=== PATIENT | female | born 1990 | race Caucasian/White ===

== ENCOUNTER 2020-11-20 10:57 | Inpatient (IN) | payer OTHER ==
[2020-11-20] MEDS ORDERED: ONDANSETRON 4 MG/2 ML VIAL ONE (11:20)
[2020-11-20] MEDS ORDERED: fentaNYL (PF) 50 MCG/ML 2 ML AMP ONE (11:20)
[2020-11-20] MEDS ORDERED: SUCCINYLCHOLINE CHLORIDE 100 MG/5 ML SYR IV ONE (11:20)
[2020-11-20] MEDS ORDERED: PROPOFOL 10 MG/ML 20 ML VIAL IV ONE (11:20)
[2020-11-20] MEDS ORDERED: OXYTOCIN 10 UNIT/ML 1 ML VIAL ONE (11:20)
[2020-11-20] MEDS ORDERED: CITRIC ACID-SODIUM CITRATE 15 ML CUP PO ONE (11:41)
[2020-11-20] MEDS ORDERED: NALOXONE 0.4 MG/ML 1 ML VIAL IV PRN (12:14)
[2020-11-20] MEDS ORDERED: diphenhydrAMINE 50 MG CAP PO PRN (12:14)
[2020-11-20] MEDS ORDERED: METOCLOPRAMIDE 5 MG/ML 2 ML VIAL IVP PRN (12:14)
[2020-11-20] MEDS ORDERED: ZOLPIDEM 5 MG TAB PO PRN (12:14)
[2020-11-20] MEDS ORDERED: SIMETHICONE 80 MG CHEWABLE PO PRN (12:14)
[2020-11-20] MEDS ORDERED: diphenhydrAMINE 50 MG/ML 1 ML VIAL IVP PRN ×2 (12:14)
[2020-11-20] MEDS ORDERED: ONDANSETRON 4 MG/2 ML VIAL IVP PRN (12:14)
[2020-11-20] MEDS ORDERED: diphenhydrAMINE 25 MG CAP PO PRN (12:14)
[2020-11-20] MEDS ORDERED: OXYTOCIN 30 UNITS/500 ML NS 30 UNIT in SALINE 1 500ML.BAG IV SCH (12:15)
[2020-11-20] MEDS ORDERED: LACTATED RINGERS 1,000 ML IV SCH (12:15)
[2020-11-20] MEDS ORDERED: ACETAMINOPHEN IV (For NPO) 1,000 MG in EMPTY BAG 1 BAG IVPB PRN (12:24)
[2020-11-20] MEDS ORDERED: HYDROmorphone PCA 10 MG/50 ML BAG IV PRN (12:25)
[2020-11-20 12:29] LABS: Basophils % (A) 0 %; Eosinophils # (A) 0.2 k/uL (0-0.7); Eosinophils % (A) 2 %; HGB 13.5 gm/dL (11.4-16.0); Lymphocytes # (A) 1.7 k/uL (1.0-4.8); Lymphocytes % (A) 18 %; MCH 31.1 pg (25.0-35.0); MCHC 34.5 g/dL (31.0-37.0); MCV 90.2 fL (80.0-100.0); Mean Platelet Volume 7.4; Monocytes # (A) 0.3 k/uL (0-1.0); Monocytes % (A) 3 %; Neutrophils # (A) 7.2 k/uL (1.3-7.7); Neutrophils % (A) 75 %; Platelet Count 207 k/uL (150-450); RBC 4.32 m/uL (3.80-5.40); RDW 14.6 % (11.5-15.5); WBC 9.6 k/uL (3.8-10.6)
--- NOTE | 2020-11-20 12:42 | P.OP ---
Date of Procedure: 11/20/20 Preoperative Diagnosis: Active labor, breech presentation, limited care Postoperative Diagnosis: Same plus confirmed demise Procedure(s) Performed: Primary low transverse section Anesthesia: MIKE Surgeon: Marly Gupta Adjustment Supervisor #1: Kole Lion Estimated Blood Loss (ml): 368 IV fluids (ml): 1,000 Urine output (ml): 1,000 Pathology: other (Placenta) Condition: stable Disposition: observation Indications for Procedure: 30 -year-old 4 para 3002 at presume term gestation presents in active labor. Patient was receiving limited care with Dr. Lo. Patient w as noted to be breech presentation and counseled for primary . Heart tones were unable to be obtained prior to section. Patient and significant other were aware of this finding. Operative Findings: Normal uterus tubes and ovaries were appreciated, interuterine demise was confirmed, female Description of Procedure: Patient was taken back to the operating suite where general anesthesia was obtained without difficulty by the anesthesia department. She had been prepped and draped prior to initiation of general anesthesia. A Pfannenstiel skin incision was made with the scalpel and carried through the underlying layer of fascia. Fascia was incised in the midline and the incision was extended laterally. The superior aspect of the fascial incision was then grasped with Sarai clamps, elevated and underlying rectus muscles dissected off sharply. Attention was then turned to the inferior aspect of the fascial incision and grasped sarai clamps, the fascia was then elevated and underlying rectus muscle was dissected off sharply. The rectus muscles were in the midline the peritoneum was identified and entered. The bladder blade was then inserted into the pelvis. A hysterotomy incision was then made, the infant was then delivered in the breech presentation. Foul-smelling meconium-stained fluid was appreciated. The umbo cord was doubly clamped and cut was able to be obtained in the umbilical cord appeared watkins in nature. The infant was handed off to awaiting RN. The placenta was then delivered manually intact with a three- vessel cord, the uterus was delivered from the abdomen and cleared of all clots and debris. The uterine incision was then closed 0 Vicryl in a running locked fashion from one lateral edge the other. A second imbricated suture was then performed. The pelvis then copiously irrigated and hysterotomy incision was inspected and found to be hemostatic. The uterus was then returned to the abdomen and the gutters were cleared of all clots and debris. A small amount of bleeding was noted in the right lateral edge of the uterine incision the Bovie was used to obtain hemostasis and FloSeal was placed over the area. The peritoneum was then loosely reapproximated and the fascia was closed with 0 Vicryl in a running fashion from one lateral edge the other. The subcutaneous tissue was then irrigated and found to be hemostatic, it was closed with 3-0 Vicryl in a running fashion. The skin was then closed with 4-0 Vicryl in a subcuticular fashion. Steri-Strips and sterile dressings were applied. All counts were noted be correct 2 at the end of the procedure. Patient tolerated procedure well.
[2020-11-20 12:58] LABS: INR 0.8 (<1.2); Partial Thromboplastin Time 23.9 sec (22.0-30.0); Prothrombin Time 9.3 sec (9.0-12.0)
[2020-11-20] MEDS ORDERED: IBUPROFEN IV 800 MG in SODIUM CHLORIDE 0.9% 250 ML IV PRN (13:00)
[2020-11-20 13:18] LABS: Amorphous Sediment,Urine Rare /hpf; Appearance,Urine Cloudy (Clear); Bilirubin,Urine Negative (Negative); Blood,Urine Negative (Negative); Color,Urine Light Yellow; Glucose,Urine (UA) Negative (Negative); Ketones,Urine 1+ (Negative); Leukocyte Esterase,Urine Negative (Negative); Nitrite,Urine Negative (Negative); Protein,Urine Negative (Negative); Specific Gravity,Urine 1.014 (1.001-1.035); Squamous Epithelial Cell,Urine <1 /hpf (0-4); Urobilinogen,Urine <2.0 mg/dL (<2.0); WBC,Urine 1 /hpf (0-5)
[2020-11-20 13:20] LABS: Amphetamine Screen,Urine Detected (NotDetected); Barbiturate Screen,Urine Not Detected (NotDetected); Benzodiazepines Screen,Urine Not Detected (NotDetected); Cocaine Screen,Urine Not Detected (NotDetected); Methadone Screen, Urine Not Detected (NotDetected); Opiate Screen,Urine Not Detected (NotDetected); Oxycodone Screen, Urine Not Detected (NotDetected); Phencyclidine Screen,Urine Not Detected (NotDetected); Tricyclic Antidepressant,Urine Not Detected (NotDetected); Urn Cannabinoid Scrn Not Detected (NotDetected)
[2020-11-20] MEDS: LACTATED RINGERS 1,000 ML IV SCH ×2 (13:41→23:02)
[2020-11-20] MEDS ORDERED: ACETAMINOPHEN TAB 500 MG TAB PO SCH (18:00)
--- NOTE | 2020-11-20 18:15 | P.HPOB ---
History of Present Illness H&P Date: 11/20/20 Chief Complaint: active labor This is a 30-year-old that presents to labor and delivery with complaints of regular painful contractions that started this morning. Patient had been receiving care with Dr. Lo at [place]. Patient had minimal care and was seen only 5 times. Patient did have an anatomy scan done at 20 weeks which appeared normal, with limited views of the spine. She completed her 1 hour gestational diabetes screen 149, did not complete her 3 hour glucose tolerance test. Minimal history was able to be ascertained duri ng her initial exam, patient was very uncomfortable and writhing around in the bed due to contraction pain. heart tones were unable to be obtained,by doppler or US. This finding was discussed with patient and significant other, and they were aware this could be a demise. She was unable to tell me when the last time she was able to feel movement. She denied vaginal bleeding or loss of fluid. records were obtained from Dr. Lo's office on blood work she has a blood type of O+, rubella status immune, hepatitis B surface antigen was noted to be negative, RPR nonreactive, hep C negative, HIV negative, STD screening negative cystic fibrosis negative. UDS on 04/27/20 positive for methamphetamines and amphetamines She did present with a significant other today, he was unable to give much history. Review of Systems Constitutional: Denies chills, Denies fatigue, Denies fever Cardiovascular: Reports leg edema Respiratory: Denies dyspnea Gastrointestinal: Denies nausea, Denies vomiting Genitourinary: Reports Past Medical History - Past Family History Father Family Medical History: No Reported History Medications and Allergies Home Medications Medication Instructions Recorded Confirmed Type Pnv No.95/Ferrous Fum/Folic AC 1 tab PO DAILY 11/20/20 11/20/20 History [ Multivitamin Tablet] Allergies Allergy/AdvReac Type Severity Reaction Status Date / Time No Known Allergies Allergy Verified 11/20/20 11:40 Exam Osteopathic Statement: *. No significant issues noted on an osteopathic structural exam other than those noted in the History and Physical/Consult. Intake and Output 11/19/20 11/20/20 11/20/20 22:59 06:59 14:59 Other: Weight 86.183 kg Targeted exam was performed upon entry into her labor and delivery suite, br eathing is noted to nonlabored, abdomen is gravid on cervical exam she was 9 cm, 100%/-3 in breech presentation with a bulging bag of water, ultrasound was used to confirm breech presentation. heart tones were unable to be obtained via handheld ultrasound, Doppler. Results Result Diagrams: 11/20/20 11:10 11/20/20 12:24 Assessment and Plan (1) Active labor Current Visit: Yes Status: Acute Code(s): WYH9823 - SNOMED Code(s): 926444294 (2) Breech presentation Current Visit: Yes Status: Acute Code(s): O32.1XX0 - MATERNAL CARE FOR BREECH PRESENTATION, UNSP SNOMED Code(s): 9596969 (3) Limited care Current Visit: Yes Status: Acute Code(s): O09.30 - SUPRVSN OF PREG W INSUFFICIENT ANTENAT CARE, UNSP TRIMESTER SNOMED Code(s): 306103853 Plan: This 30-year-old 002 at unknown gestation, (38 weeks per patient) presents to labor and delivery with complaints of contractions started early this morning. Patient was receiving care with Dr. Lo although very limited. Patient was noted to be 8 cm, breech presentation, on my exam when I was called urgently from the office. I discussed with the patient and sig nificant other the baby's presentation and need for primary . Patient and stated understanding, informed consent was obtained. I did discuss with the in addition that I was unable to obtain heart tones, and he stated understanding. Patient was taken back to the operating suite for primary , emergent.
[2020-11-20] MEDS: ACETAMINOPHEN TAB 500 MG TAB PO SCH (20:25)
[2020-11-20 22:23] LABS: HIV 2 AB Non-Reactive (Non-Reactive); HIV AB P24 Non-Reactive (Non-Reactive); HIV P24 AG Non-Reactive (Non-Reactive)
[2020-11-20] MEDS: SENNOSIDES-DOCUSATE SODIUM 1 EACH TAB PO SCH (22:42)
[2020-11-20] MEDS: IBUPROFEN 600 MG TAB PO SCH (22:42)
[2020-11-21] MEDS: ACETAMINOPHEN TAB 500 MG TAB PO SCH ×3 (02:36→16:10)
[2020-11-21 02:38] LABS: Hepatitis B Surface Antigen Non-Reactive (Non-Reactive)
[2020-11-21] MEDS: IBUPROFEN 600 MG TAB PO SCH ×4 (05:51→20:41)
[2020-11-21] MEDS: LACTATED RINGERS 1,000 ML IV SCH (05:51)
[2020-11-21 07:11] LABS: Basophils % (A) 0 %; Eosinophils # (A) 0.2 k/uL (0-0.7); Eosinophils % (A) 2 %; HGB 11.5 gm/dL (11.4-16.0); Lymphocytes # (A) 1.6 k/uL (1.0-4.8); Lymphocytes % (A) 19 %; MCH 30.3 pg (25.0-35.0); MCHC 32.9 g/dL (31.0-37.0); Mean Platelet Volume 7.6; Monocytes # (A) 0.3 k/uL (0-1.0); Monocytes % (A) 3 %; Neutrophils # (A) 6.4 k/uL (1.3-7.7); Neutrophils % (A) 75 %; Platelet Count 181 k/uL (150-450); RDW 15.3 % (11.5-15.5); WBC 8.5 k/uL (3.8-10.6)
[2020-11-21 07:27] LABS: ALT 22 U/L (4-34); AST 30 U/L (14-36); African American GFR (CKD) >90 (>60 ml/min/1.73 sqM); Albumin 2.3 g/dL (3.5-5.0); Alkaline Phosphatase 106 U/L (38-126); Anion Gap 2 mmol/L; Blood Urea Nitrogen 4 mg/dL (7-17); Carbon Dioxide 24 mmol/L (22-30); Chloride 108 mmol/L (98-107); Glucose 87 mg/dL (74-99); Non-African American GFR(CKD) >90 (>60 ml/min/1.73 sqM); Potassium 3.5 mmol/L (3.5-5.1); Sodium 134 mmol/L (137-145); Total Bilirubin 0.2 mg/dL (0.2-1.3); Total Protein 4.6 g/dL (6.3-8.2)
--- NOTE | 2020-11-21 08:42 | P.PNOBGPC ---
Subjective - Subjective Principal diagnosis: POD 1 LTCS breech IUFD Interval history: Patient is doing well, she is noting increasing pain this morning after EVENT MANAGER was discontinued. Sawyer was discontinued and we are awaiting spontaneous void. She had excellent urinary output overnight. Mood is appropriate given interuterine demise. Tolerating clear liquids without nausea or vomiting. Patient reports: Reports appetite normal, Reports pain well controlled, Reports ambulating normally [place]: Objective - Vital Signs Latest vital signs: Vital Signs Temp Pulse Resp BP Pulse Ox 11/21/20 04:00 98.1 F 83 18 122/73 11/21/20 00:00 97.8 F 82 16 102/63 11/20/20 20:00 98.4 F 82 16 98/60 99 11/20/20 16:00 97.8 F 78 16 96/53 100 11/20/20 14:11 81 16 102/63 100 11/20/20 13:41 80 16 115/66 100 11/20/20 13:11 73 16 116/59 100 11/20/20 12:56 74 16 103/66 100 11/20/20 12:41 85 16 90/50 100 11/20/20 12:26 90 16 88/64 100 11/20/20 12:11 96.1 F L 93 16 112/63 94 L 11/20/20 11:36 95.5 F L 97 18 109/58 100 Intake and Output 11/20/20 11/21/20 11/21/20 22:59 06:59 14:59 Output Total 1600 1100 Balance -1600 -1100 Output: Urine 1600 1100 Other: # Voids 3 - Exam Extremities: Present: normal, edema Abdomen: Present: normal appearance, soft Incision: Present: normal, dry, intact Uterus: Present: normal, firm - Labs Labs: Abnormal Lab Results - Last 24 Hours (Table) 11/20/20 11/20/20 11/20/20 Range/Units 12:24 12:24 12:24 Sodium (137-145) mmol/L Chloride (98-107) mmol/L BUN (7-17) mg/dL Glucose 112 H (74-99) mg/dL Calcium (8.4-10.2) mg/dL Total Protein (6.3-8.2) g/dL Albumin (3.5-5.0) g/dL Urine Appearance Cloudy H (Clear) Urine Ketones 1+ H (Negative) Amorphous Sediment Rare H (None) /hpf Ur Amphetamines Screen Detected H (NotDetected) U Methamphetamines Scrn Detected H (NotDetected) 11/21/20 Range/Units 06:58 Sodium 134 L (137-145) mmol/L Chloride 108 H (98-107) mmol/L BUN 4 L (7-17) mg/dL Glucose (74-99) mg/dL Calcium 8.0 L (8.4-10.2) mg/dL Total Protein 4.6 L (6.3-8.2) g/dL Albumin 2.3 L (3.5-5.0) g/dL Urine Appearance (Clear) Urine Ketones (Negative) Amorphous Sediment (None) /hpf Ur Amphetamines Screen (NotDetected) U Methamphetamines Scrn (NotDetected) Assessment and Plan (1) Active labor Current Visit: Yes Status: Acute Code(s): HEG9304 - SNOMED Code(s): 294353385 (2) Breech presentation Current Visit: Yes Status: Acute Code(s): O32.1XX0 - MATERNAL CARE FOR BREECH PRESENTATION, UNSP SNOMED Code(s): 6798458 (3) Limited care Current Visit: Yes Status: Acute Code(s): O09.30 - SUPRVSN OF PREG W INSUFFICIENT ANTENAT CARE, UNSP TRIMESTER SNOMED Code(s): 410931537 Plan: Patient is doing well postoperatively. Awaiting spontaneous void status post Sawyer removal. EVENT MANAGER was discontinued this morning we'll switch to oral medication. Encouraged increased ambulation. Continue routine postoperative care.
[2020-11-21] MEDS: SENNOSIDES-DOCUSATE SODIUM 1 EACH TAB PO SCH ×2 (08:59→20:41)
[2020-11-22 00:14] VITALS: TEMP 98.4
[2020-11-22] MEDS: ACETAMINOPHEN TAB 500 MG TAB PO SCH ×2 (02:27→05:59)
[2020-11-22] MEDS: IBUPROFEN 600 MG TAB PO SCH ×2 (05:59→09:51)
[2020-11-22 08:19] VITALS: BP 114/70; PULSE 100; RESP 18
--- NOTE | 2020-11-22 09:04 | P.DS ---
Providers Date of admission: 11/20/20 11:08 Expected date of discharge: 11/22/20 Attending physician: Marly Gupta Primary care physician: Stated None - Discharge Diagnosis(es) (1) Active labor Current Visit: Yes Status: Acute (2) Breech presentation Current Visit: Yes Status: Acute (3) Limited care Current Visit: Yes Status: Acute Hospital Course: This is a 30-year-old 4 para 3002 no doc patient that presented to labor and delivery with regular painful contractions. Patient stated contractions started that morning. Patient had been a patient of Dr. Lo since a clear although limited care was noted upon receiving records. I was called urgently from the office for evaluation of this patient. Patient was actively laboring upon evaluation with infant being in a breech presentation with a bulging bag of water. Presentation was confirmed with ultrasound, Heart tones were not able to be auscultated. Prior to the I did discuss with patient and her significant other that heart tones were not appreciated, and demise was suspected. Patient was taken for emergent section, upon entering the uterus and interuterine demise was noted. A no n-the viable female was delivered via primary . For full details on the please the operative report. Patient's postoperative course has been uneventful. Patient has done well postoperatively, she is ambulate and voiding without difficulty. She is tolerating a regular diet without nausea or vomiting. She states her pain is well-controlled. Her lochia is minimal. She would like discharge home today. Patient Condition at Discharge: Good Plan - Discharge Summary New Discharge Prescriptions: No Action Pnv No.95/Ferrous Fum/Folic AC [ Multivitamin Tablet] 1 tab PO DAILY Discharge Medication List Pnv No.95/Ferrous Fum/Folic AC [ Multivitamin Tablet] 1 tab PO DAILY 11/20/20 [History] Follow up Appointment(s)/Referral(s): Bernabe Lo DO [REFERRING] - 1 Week Patient Instructions/Handouts: (DC), (GEN) Discharge Disposition: HOME SELF-CARE
[2020-11-22] MEDS: SENNOSIDES-DOCUSATE SODIUM 1 EACH TAB PO SCH (09:51)
[2020-11-22 15:36] LABS: C. trachomatis,PCR Negative (Neg,Equiv); Chlamydia trachomatis Source Urine; N. gonorrhoeae,PCR Negative (Neg,Equiv); Neisseria Source Urine
== END 2020-11-22 12:00 | disposition home or self-care (01) | DRG 788 ==
LOC: FBPOP 10:57 → 4FBP 11:08
PROVIDERS: ADMIT Obstetrics & Gynecology Obstetrics; ATTEND Obstetrics & Gynecology Obstetrics
PROC: 10D00Z1 Extraction of Products of Conception, Low, Open Approach (ICD-10-PCS; principal; 2020-11-20 11:26)
DX: O32.1XX0 Maternal care for breech presentation, not applicable or unspecified (principal); O02.1 Missed abortion; O77.0 Labor and delivery complicated by meconium in amniotic fluid; Z3A.38 38 weeks gestation of pregnancy; Z37.1 Single stillbirth; O09.33 Supervision of pregnancy with insufficient antenatal care, third trimester
CPT/HCPCS: 80053; 80306; 81001; 82947; 85025; 85610; 85730; 86762; 86780; 86850; 86900; 86901; 87340; 87390; 87491; 87591; 88307